=== PATIENT | male | born 1955 | race Two or more races ===

== ENCOUNTER 2023-01-28 02:43 | Emergency (ER) | payer OTHER ==
[~2023-01-28] VITALS: Ht 182.9 cm; Wt 134.1 kg
[2023-01-28 05:35] LABS: Urine Bacteria NONE SEEN /hpf (None Seen); Urine Blood Negative /uL (Negative); Urine Clarity Clear (Clear); Urine Color Yellow (Yellow); Urine Mucus FEW (None Seen); Urine Protein, UAD TRACE (Negative); Urine Specific Gravity 1.023 (1.001-1.035); Urine WBC 2 /hpf (0 - 3); Urine pH 5.5 (5.0-8.0)
[2023-01-28 07:07] LABS: Basophils # (auto) 0.1 10 ^3/uL (0-0.2); Basophils % (auto) 0.7 % (0.0-2.0); Eosinophils # (auto) 0.1 10 ^3/uL (0-0.8); Eosinophils % (auto) 0.7 % (0.0-7.0); Hematocrit 46.9 % (41.0-53.0); Lymphocytes # (auto) 1.2 10 ^3/uL (0.4-5.4); Lymphocytes % (auto) 11.7 % (10.0-50.0); Mean Corpuscular Hemoglobin 33.9 pg (28.0-32.0); Mean Corpuscular Hgb Conc. 34.1 g/dL (32.0-36.0); Mean Corpuscular Volume 99.3 fL (80.0-100.0); Monocytes # (auto) 0.8 10 ^3/uL (0-1.3); Monocytes % (auto) 8.5 % (0.0-12.0); Neutrophils # (auto) 7.7 10 ^3/uL (1.6-8.6); Neutrophils % (auto) 78.4 % (37.0-80.0); Red Blood Cells 4.73 10^6/uL (4.5-5.90); Red Cell Distribution Width 13.5 % (11.8-14.3); White Blood Cell 9.9 10^3/uL (4.4-10.8)
[2023-01-28 07:42] LABS: Alanine Aminotransferase 29 U/L (7-40); Albumin 4.5 g/dL (3.2-4.8); Alkaline Phosphatase 59 U/L (46-116); Anion Gap 8 (5-15); Aspartate Aminotransferase 22 U/L (13-40); BUN/Creatinine Ratio 14.3 (10.0-20.0); Blood Urea Nitrogen 16 mg/dL (9-23); Calcium 9.7 mg/dL (8.5-10.1); Carbon Dioxide 27 mmol/L (20-30); Chloride 106 mmol/L (98-107); Glucose 99 mg/dL (74-106); Potassium 4.2 mmol/L (3.5-5.1); Sodium 141 mmol/L (136-145)
[2023-01-28 07:43] LABS: Bilirubin, Total 1.4 mg/dL (0.2-1.0); Total Protein 7.8 g/dL (5.7-8.2)
[2023-01-28 08:01] VITALS: PULSE 81; RESP 15; O2SAT 93
[2023-01-28] MEDS ORDERED: FUROSEMIDE 20 MG/2 ML VIAL IV ONE (08:15)
[2023-01-28 09:25] VITALS: BP 108/71; PULSE 68; RESP 18; TEMP 97.5; O2SAT 96
[2023-01-28] MEDS ORDERED: CIP500T PO (21:41)
[2023-01-28] MEDS ORDERED: PHEN-1045 PO (21:41)
== END 2023-01-28 09:56 | disposition home or self-care (01) ==
LOC: ER 02:43
DX: N40.0 Benign prostatic hyperplasia without lower urinary tract symptoms (principal)
CPT/HCPCS: 36415; 80053; 81001; 83880; 84484; 85025; 96374; 99285; J1940

== ENCOUNTER 2023-01-28 16:21 | Emergency (ER) | payer OTHER ==
[~2023-01-28] VITALS: Ht 182.9 cm; Wt 134.0 kg
[2023-01-28 19:31] VITALS: BP 101/84; PULSE 94; RESP 20; TEMP 97.2; O2SAT 95
[2023-01-28 21:15] LABS: Urine Bacteria NONE SEEN /hpf (None Seen); Urine Blood 3+ /uL (Negative); Urine Clarity CLOUDY (Clear); Urine Color Red (Yellow); Urine Protein, UAD 3+ (Negative); Urine Specific Gravity 1.019 (1.001-1.035); Urine Urobilinogen Normal (Negative); Urine WBC 438 /hpf (0 - 3); Urine WBC Clumps PRESENT /hpf (None Seen)
[2023-01-28] MEDS ORDERED: CIP500T PO (21:41)
[2023-01-28] MEDS ORDERED: PHEN-1045 PO (21:41)
[2023-01-28] MEDS ORDERED: cefTRIAXone SOD 1,000 MG VL IM ONE (21:45)
== END 2023-01-28 22:15 | disposition home or self-care (01) ==
LOC: ER 16:21
DX: R19.00 Intra-abdominal and pelvic swelling, mass and lump, unspecified site (principal); N40.0 Benign prostatic hyperplasia without lower urinary tract symptoms; N30.90 Cystitis, unspecified without hematuria; R33.9 Retention of urine, unspecified
CPT/HCPCS: 74176; 81001; 96372; 99285; J0696

== ENCOUNTER 2023-03-09 16:13 | Emergency (ER) | payer OTHER ==
[~2023-03-09] VITALS: Ht 182.9 cm; Wt 134.0 kg
[~2023-03-09 16:13] MED LIST: CIP500T PO; PHEN-1045 PO
[2023-03-09] MEDS ORDERED: LIDOCAINE 2% JELLY 11ml (GLYDO) UR ONE ×2 (16:30)
[2023-03-09] MEDS ORDERED: KETOROLAC TROMETH 60MG/2ML VIAL IM ONE (16:45)
[2023-03-09] MEDS ORDERED: ACETAMINOPHEN 500 MG TAB PO ONE (16:45)
[2023-03-09 16:54] LABS: Urine Epithelial Cast None Seen /hpf (<5)
[2023-03-09 16:58] LABS: Basophils # (auto) 0.1 10 ^3/uL (0-0.2); Basophils % (auto) 0.6 % (0.0-2.0); Eosinophils # (auto) 0 10 ^3/uL (0-0.8); Eosinophils % (auto) 0.1 % (0.0-7.0); Hemoglobin 16.6 g/dL (13.5-17.5); Neutrophils # (auto) 12.5 10 ^3/uL (1.6-8.6)
[2023-03-09 17:00] LABS: Hematocrit 48.4 % (41.0-53.0); Lymphocytes # (auto) 0.9 10 ^3/uL (0.4-5.4); Lymphocytes % (auto) 6.1 % (10.0-50.0); Mean Corpuscular Hemoglobin 33.7 pg (28.0-32.0); Mean Corpuscular Hgb Conc. 34.3 g/dL (32.0-36.0); Mean Corpuscular Volume 98.3 fL (80.0-100.0); Monocytes # (auto) 0.8 10 ^3/uL (0-1.3); Monocytes % (auto) 5.7 % (0.0-12.0); Neutrophils % (auto) 87.5 % (37.0-80.0); Red Blood Cells 4.92 10^6/uL (4.5-5.90); Red Cell Distribution Width 13.4 % (11.8-14.3); White Blood Cell 14.2 10^3/uL (4.4-10.8)
[2023-03-09 17:17] LABS: Alanine Aminotransferase 23 U/L (7-40); Albumin 4.5 g/dL (3.2-4.8); Alkaline Phosphatase 68 U/L (46-116); Anion Gap 11 (5-15); Aspartate Aminotransferase 21 U/L (13-40); Blood Urea Nitrogen 16 mg/dL (9-23); Calcium 9.3 mg/dL (8.7-10.4); Carbon Dioxide 21 mmol/L (20-30); Chloride 106 mmol/L (98-107); Glucose 113 mg/dL (74-106); Potassium 3.9 mmol/L (3.5-5.1); Sodium 138 mmol/L (136-145)
[2023-03-09 17:18] LABS: Bilirubin, Total 1.8 mg/dL (0.2-1.0); Total Protein 7.9 g/dL (5.7-8.2)
[2023-03-09 18:20] LABS: Urine Bacteria NONE SEEN /hpf (None Seen); Urine Blood 1+ /uL (Negative); Urine Clarity HAZY (Clear); Urine Color Yellow (Yellow); Urine Mucus FEW (None Seen); Urine Protein, UAD 1+ (Negative); Urine Specific Gravity 1.021 (1.001-1.035); Urine WBC 34 /hpf (0 - 3); Urine pH 6.5 (5.0-8.0)
[2023-03-09] MEDS ORDERED: ACE3T PO (21:41)
[2023-03-09] MEDS ORDERED: LEVO750T8 PO ×2 (21:41)
[2023-03-09 21:58] VITALS: BP 116/77; PULSE 102; RESP 17; TEMP 97.6; O2SAT 96
== END 2023-03-09 23:54 | disposition home or self-care (01) ==
LOC: ER 16:13
DX: N39.0 Urinary tract infection, site not specified (principal); N32.0 Bladder-neck obstruction; N43.3 Hydrocele, unspecified
CPT/HCPCS: 36415; 76870; 80053; 81001; 83605; 84484; 85025; 87040; 87077; 87186; 96372; 99285; J1885

== ENCOUNTER 2023-03-14 06:49 | Inpatient (IN) | payer OTHER ==
[~2023-03-14] VITALS: Ht 182.9 cm; Wt 127.3 kg
[~2023-03-14 06:49] MED LIST changes: +ACE3T PO; +LEVO750T8 PO
[2023-03-14 07:20] LABS: Urine Epithelial Cast None Seen /hpf (<5)
[2023-03-14 07:40] LABS: Urine Bacteria NONE SEEN /hpf (None Seen); Urine Blood 2+ /uL (Negative); Urine Budding Yeast OCCASIONAL /hpf (None Seen); Urine Clarity HAZY (Clear); Urine Color Yellow (Yellow); Urine Hyaline Cast FEW /lpf (0 - 2); Urine Mucus FEW (None Seen); Urine Protein, UAD 1+ (Negative); Urine WBC 353 /hpf (0 - 3); Urine WBC Clumps PRESENT /hpf (None Seen); Urine pH 5.5 (5.0-8.0)
[2023-03-14] MEDS ORDERED: VANCOMYCIN 1GM/200ML 200 ML IV ONE (09:00)
[2023-03-14 09:08] LABS: Basophils # (auto) 0 10 ^3/uL (0-0.2); Basophils % (auto) 0.7 % (0.0-2.0); Eosinophils # (auto) 0.1 10 ^3/uL (0-0.8); Eosinophils % (auto) 1.7 % (0.0-7.0); Hematocrit 44.6 % (41.0-53.0); Hemoglobin 15.2 g/dL (13.5-17.5); Lymphocytes % (auto) 13.9 % (10.0-50.0); Mean Corpuscular Hemoglobin 33.7 pg (28.0-32.0); Mean Corpuscular Hgb Conc. 34.2 g/dL (32.0-36.0); Mean Corpuscular Volume 98.7 fL (80.0-100.0); Monocytes # (auto) 1.1 10 ^3/uL (0-1.3); Monocytes % (auto) 16.1 % (0.0-12.0); Neutrophils # (auto) 4.7 10 ^3/uL (1.6-8.6); Neutrophils % (auto) 67.6 % (37.0-80.0); Nucleated Red Blood Cells % 0.1 %; Red Blood Cells 4.52 10^6/uL (4.5-5.90); Red Cell Distribution Width 13.3 % (11.8-14.3)
[2023-03-14 09:25] LABS: Alanine Aminotransferase 26 U/L (7-40); Albumin 4.1 g/dL (3.2-4.8); Alkaline Phosphatase 67 U/L (46-116); Anion Gap 7 (5-15); Aspartate Aminotransferase 44 U/L (13-40); BUN/Creatinine Ratio 11.9 (10.0-20.0); Blood Urea Nitrogen 10 mg/dL (9-23); Calcium 9.3 mg/dL (8.5-10.1); Carbon Dioxide 24 mmol/L (20-30); Chloride 103 mmol/L (98-107); Glucose 111 mg/dL (74-106); Potassium 3.6 mmol/L (3.5-5.1); Sodium 134 mmol/L (136-145)
[2023-03-14 09:26] LABS: Total Protein 7.6 g/dL (5.7-8.2)
[2023-03-14] MEDS ORDERED: CEFTRIAXONE SODIUM 2 GM in D5W 5% 100 ML IV ONE (14:00)
[2023-03-14] MEDS ORDERED: DOCUSATE SOD 100 MG CAP PO PRN (15:45)
[2023-03-14] MEDS ORDERED: BACTRIM 5MG/KG Q8HR PER RX 10 ML IV SCH (15:45)
[2023-03-14] MEDS ORDERED: ONDANSETRON HCL 4 MG/2 ML VIAL IV PRN (15:45)
[2023-03-14 16:11] VITALS: BP 102/70; PULSE 85; RESP 15; TEMP 97.6; O2SAT 95
[2023-03-14] MEDS: SODIUM CHLORIDE 0.9% 1,000 ML IV SCH (16:48)
[2023-03-14] MEDS ORDERED: TAMSULOSIN HYDROCHLORIDE 0.4 MG CAP PO SCH (18:00)
[2023-03-14] MEDS: DAPTOmycin 750 MG in SODIUM CHL 0.9% 50 ML IV SCH (18:00)
[2023-03-14 20:57] VITALS: PULSE 76; RESP 18; O2SAT 98
[2023-03-14 21:40] VITALS: BP 137/81; PULSE 97; RESP 18; TEMP 99.1; O2SAT 93
[2023-03-14 22:00] VITALS: BP 137/81; PULSE 97; RESP 18; TEMP 99.1; O2SAT 93
[2023-03-14] MEDS ORDERED: CLINDAMYCIN 300MG IV 50 ML IV SCH (22:00)
[2023-03-14] MEDS: MORPHINE SULFATE INJ 2 MG/ml SYRG IV PRN (22:31)
[2023-03-14 23:26] VITALS: PULSE 87; O2SAT 98
[2023-03-15] MEDS ORDERED: PNEUMOCOCCAL VACC POLYS 25 MCG/0.5 ML VIAL IM ONE
[2023-03-15] MEDS ORDERED: TAMS-35 PO (04:11)
[2023-03-15 05:00] VITALS: BP 111/76; PULSE 72; RESP 19; TEMP 98.3; O2SAT 92
[2023-03-15 05:27] LABS: Basophils # (auto) 0 10 ^3/uL (0-0.2); Basophils % (auto) 0.5 % (0.0-2.0); Eosinophils # (auto) 0.2 10 ^3/uL (0-0.8); Eosinophils % (auto) 2.7 % (0.0-7.0); Hematocrit 39.3 % (41.0-53.0); Hemoglobin 13.5 g/dL (13.5-17.5); Lymphocytes # (auto) 1.1 10 ^3/uL (0.4-5.4); Lymphocytes % (auto) 16.2 % (10.0-50.0); Mean Corpuscular Hemoglobin 33.8 pg (28.0-32.0); Mean Corpuscular Hgb Conc. 34.3 g/dL (32.0-36.0); Mean Corpuscular Volume 98.8 fL (80.0-100.0); Monocytes # (auto) 0.9 10 ^3/uL (0-1.3); Monocytes % (auto) 12.8 % (0.0-12.0); Neutrophils # (auto) 4.6 10 ^3/uL (1.6-8.6); Neutrophils % (auto) 67.8 % (37.0-80.0); Nucleated Red Blood Cells % 0.1 %; Red Blood Cells 3.98 10^6/uL (4.5-5.90); White Blood Cell 6.8 10^3/uL (4.4-10.8)
[2023-03-15] MEDS: MORPHINE SULFATE INJ 2 MG/ml SYRG IV PRN ×2 (05:46→23:24)
[2023-03-15 05:48] LABS: Alanine Aminotransferase 27 U/L (7-40); Albumin 3.4 g/dL (3.2-4.8); Alkaline Phosphatase 57 U/L (46-116); Anion Gap 6 (5-15); Aspartate Aminotransferase 32 U/L (13-40); BUN/Creatinine Ratio 16.5 (10.0-20.0); Bilirubin, Total 0.8 mg/dL (0.2-1.0); Blood Urea Nitrogen 13 mg/dL (9-23); Calcium 8.6 mg/dL (8.5-10.1); Carbon Dioxide 27 mmol/L (20-30); Chloride 104 mmol/L (98-107); Glucose 100 mg/dL (74-106); Potassium 3.5 mmol/L (3.5-5.1); Sodium 137 mmol/L (136-145)
[2023-03-15 05:49] LABS: Total Protein 6.4 g/dL (5.7-8.2)
[2023-03-15] MEDS: SODIUM CHLORIDE 0.9% 1,000 ML IV SCH ×2 (06:03→09:29)
[2023-03-15 08:20] VITALS: BP 99/63; PULSE 82; RESP 18; TEMP 98.6; O2SAT 93
[2023-03-15 08:24] LABS: Hepatitis B Surface Antigen Negative (Negative)
[2023-03-15 08:46] LABS: Hepatitis C Antibody Negative (Negative)
[2023-03-15] MEDS ORDERED: ENOXAPARIN SOD 40 MG/0.4 ML SYRINGE SC ONE (11:45)
[2023-03-15 12:15] VITALS: BP 109/70; PULSE 79; RESP 19; TEMP 98.3; O2SAT 95
[2023-03-15] MEDS ORDERED: FINA5TAB4 PO (14:51)
[2023-03-15] MEDS ORDERED: AMOX500T92 PO (14:55)
[2023-03-15 16:20] VITALS: BP 113/72; PULSE 71; RESP 18; TEMP 98.6; O2SAT 97
[2023-03-15] MEDS: TAMSULOSIN HYDROCHLORIDE 0.4 MG CAP PO SCH (18:24)
[2023-03-15] MEDS: DAPTOmycin 750 MG in SODIUM CHL 0.9% 50 ML IV SCH (18:24)
[2023-03-15 19:55] VITALS: PULSE 99; RESP 21; O2SAT 93
[2023-03-15 22:00] VITALS: BP 104/72; PULSE 97; RESP 21; TEMP 99.3; O2SAT 93
[2023-03-16] VITALS (7 sets, daily range): BP systolic 94–122; BP diastolic 68–77; PULSE 63–94; RESP 18–21; TEMP 97–99.2; O2SAT 92–97
[2023-03-16] MEDS: ENOXAPARIN SOD 40 MG/0.4 ML SYRINGE SC SCH (12:41)
[2023-03-16] MEDS: TAMSULOSIN HYDROCHLORIDE 0.4 MG CAP PO SCH (18:00)
[2023-03-16] MEDS: DAPTOmycin 750 MG in SODIUM CHL 0.9% 50 ML IV SCH (18:00)
[2023-03-17] VITALS (7 sets, daily range): BP systolic 90–111; BP diastolic 59–71; PULSE 67–103; RESP 14–20; TEMP 97.6–98.3; O2SAT 92–94
[2023-03-17] MEDS: ENOXAPARIN SOD 40 MG/0.4 ML SYRINGE SC SCH (11:39)
[2023-03-17] MEDS: TAMSULOSIN HYDROCHLORIDE 0.4 MG CAP PO SCH (17:34)
[2023-03-17] MEDS: DAPTOmycin 750 MG in SODIUM CHL 0.9% 50 ML IV SCH (17:35)
[2023-03-17] MEDS ORDERED: TEMAZEPAM 15 MG CAP PO PRN (20:00)
[2023-03-18] VITALS (7 sets, daily range): BP systolic 95–117; BP diastolic 57–80; PULSE 68–89; RESP 12–20; TEMP 97.5–98.7; O2SAT 92–100
[2023-03-18] MEDS: ENOXAPARIN SOD 40 MG/0.4 ML SYRINGE SC SCH (10:28)
[2023-03-18] MEDS: TAMSULOSIN HYDROCHLORIDE 0.4 MG CAP PO SCH (17:18)
[2023-03-18] MEDS: DAPTOmycin 750 MG in SODIUM CHL 0.9% 50 ML IV SCH (17:19)
[2023-03-19 05:00] VITALS: BP 109/71; PULSE 78; RESP 14; TEMP 97.9; O2SAT 95
[2023-03-19 09:00] VITALS: BP 98/66; PULSE 77; RESP 18; TEMP 98.1; O2SAT 94
[2023-03-19] MEDS: ENOXAPARIN SOD 40 MG/0.4 ML SYRINGE SC SCH (10:37)
[2023-03-19] MEDS ORDERED: BACDST PO (11:18)
[2023-03-19] MEDS ORDERED: MUPI2OIN2 EX (11:23)
[2023-03-19 13:00] VITALS: BP 91/63; PULSE 80; RESP 18; TEMP 98.3; O2SAT 91
[2023-03-19] MEDS ORDERED: SULFAMETHOX W/TRIMETH(800/160MG) DS TAB PO ONE (14:30)
[2023-03-19] MEDS ORDERED: DAPTOmycin 750 MG in SODIUM CHL 0.9% 50 ML IV ONE (14:30)
[2023-03-19 17:00] VITALS: BP 116/68; PULSE 74; RESP 18; TEMP 97.7; O2SAT 91
[2023-03-19] MEDS ORDERED: SULFAMETHOX W/TRIMETH(800/160MG) DS TAB PO SCH ×2 (22:00)
== END 2023-03-19 17:30 | disposition home health service (06) | DRG 698 ==
LOC: ER 06:49 → OVERFLOW 15:42 → EAST 21:11
PROVIDERS: ADMIT Nurse Practitioner Family; ATTEND Internal Medicine Geriatric Medicine
PROC: 5A09357 Assistance with Respiratory Ventilation, Less than 24 Consecutive Hours, Continuous Positive Airway Pressure (ICD-10-PCS; principal; 2023-03-14)
DX: T83.518A Infection and inflammatory reaction due to other urinary catheter, initial encounter (principal); A41.02 Sepsis due to Methicillin resistant Staphylococcus aureus; N30.01 Acute cystitis with hematuria; I50.9 Heart failure, unspecified; F32.A Depression, unspecified; E66.01 Morbid (severe) obesity due to excess calories; G47.33 Obstructive sleep apnea (adult) (pediatric); G62.9 Polyneuropathy, unspecified; N40.1 Benign prostatic hyperplasia with lower urinary tract symptoms; R33.8 Other retention of urine; G47.00 Insomnia, unspecified; Z68.38 Body mass index [BMI] 38.0-38.9, adult
CPT/HCPCS: 36415; 80053; 80061; 81001; 83036; 83735; 84443; 85025; 86803; 87040; 87081; 87086; 87088; 87186; 87340; 93306; 94660; 96361; 96365; 96367; 97110; 97116; 97163; 97530; G0378; J0696; J7060